=== PATIENT | female | born 1945 | race Caucasian/White ===

== ENCOUNTER 2018-11-24 11:13 | Emergency (ER) | payer MEDICARE ==
[~2018-11-24 11:13] MED LIST: Iopamidol 370 76% 100 ML VIAL ONE
[2018-11-24] MEDS ORDERED: Morphine 4 MG/ML VIAL ONE ×2 (11:31→13:54)
[2018-11-24] MEDS ORDERED: Ondansetron PF 4 MG/2 ML Vial ONE (11:31)
[2018-11-24 12:22] LABS: #Basophils 0.1 thou/uL (0.0-0.2); #Eosinphils 0.3 thou/uL (0.0-0.7); #Lymphocytes 2.4 thou/uL (1.20-3.40); #Monocytes 0.7 thou/uL (0.11-0.59); #Neutrophils 6.6 thou/uL (1.40-6.50); %Basophils 1.1 % (0.0-1.0); %Eosinophils 2.5 % (0.0-10.0); %Lymphocytes 23.6 % (21.0-51.0); %Monocytes 7.3 % (0.0-10.0); %Neutrophils 65.5 % (42.0-75.0); Mean Corpuscular Hemoglobin 30.4 pg (27.0-31.0); Mean Corpuscular Volume 86.8 fL (78.0-98.0); Mean Platelet Volume 6.1 fL (7.4-10.4); Platelet Count 336 thou/uL (130-400); RBC Distribution Width 11.3 % (11.5-14.5); Red Blood Cell (RBC) Count 4.93 mill/uL (4.20-5.40); White Blood Cell (WBC) Count 10.1 thou/uL (4.8-10.8)
[2018-11-24 12:35] LABS: ALT (SGPT) 35 U/L (8-55); AST (SGOT) 29 U/L (5-34); Albumin 4.7 g/dL (3.4-4.8); Alkaline Phosphatase 95 U/L (40-150); Anion Gap 18 mmol/L (10-20); BUN (Urea Nitrogen) 14 mg/dL (9.8-20.1); Bilirubin, Total 1.1 mg/dL (0.2-1.2); Calc. Creatinine Clearance 0 mL/min (70-130); Calcium 9.7 mg/dL (7.8-10.44); Carbon Dioxide 21 mmol/L (23-31); Chloride 105 mmol/L (98-107); Estimated GFR-MDRD 57; Globulin 2.9 g/dL (2.4-3.5); Glucose 103 mg/dL (83-110); Lipase 34 U/L (8-78); Potassium 4.1 mmol/L (3.5-5.1); Protein, Total 7.6 g/dL (6.0-8.3); Sodium 140 mmol/L (136-145)
--- NOTE | 2018-11-24 13:35 | CT ---
CT ABDOMEN AND PELVIS WITH IV CONTRAST: Date: 11/24/18 HISTORY: Acute abdominal pain. FINDINGS: The lung bases are clear. The liver demonstrates decreased echogenicity compared to the spleen, consi stent with fatty infiltration. The spleen, pancreas, adrenal glands, and right kidney are normal. No calcified gallstones are seen. There is a cyst in the left kidney. There is a cyst in the left kidney. There is relative heterogenei ty in the enhancement of the left renal parenchyma compared to the right. No hydroureteronephrosis is seen on either side. No free air, free fluid, or lymphadenopathy seen in the abdomen or pelvis. The small bowel loops are not abnormally dilated. There is sigmoid diverticulosis. There are vascular calcifications without ev idence of aneurysmal dilatation of the abdominal aorta. There are degenerative changes in the spine. IMPRESSION: 1. Fatty liver. 2. Probable left pyelonephritis. 3. Sigmoid diverticulosis. POS: [facility]ADA
[2018-11-24 13:36] LABS: Bilirubin Negative (Negative); Blood, Urine Negative (Negative); Clarity Clear (Clear); Glucose, Urine (Dipstick) Negative (Negative); Leukocyte Negative (Negative); Nitrite Negative (Negative); Protein, Urine (Dipstick) Negative (Neg-Trace); Specific Gravity, Urine 1.015 (1.005-1.030); Urobilinogen 0.2 mg/dL (0.2-1.0)
== END 2018-11-24 16:50 | disposition short-term general hospital (02) ==
LOC: MADERS 11:13
DX: R10.12 Left upper quadrant pain (principal); I10 Essential (primary) hypertension
CPT/HCPCS: 36415; 74177; 80053; 81003; 83690; 85025; 93005; 96374; 96375; 96376; J2270; J2405

== ENCOUNTER 2020-05-01 12:29 | Outpatient (CLI) | payer MEDICARE ==
--- NOTE | 2020-05-01 13:48 | RAD ---
LEFT KNEE: 05/01/20 Four views. HISTORY: Injury to knee. Joint spaces are preserved. No fracture. No significant degenerative change. No joint effusion. IMPRESSION: Unremarkable left knee. POS: AH
== END 2020-05-01 12:30 | disposition home or self-care (01) ==
LOC: MADRAD 12:29
PROVIDERS: ATTEND Nurse Practitioner Family
DX: S86.912A Strain of unspecified muscle(s) and tendon(s) at lower leg level, left leg, initial encounter (principal); S83.422A Sprain of lateral collateral ligament of left knee, initial encounter

== ENCOUNTER 2021-11-06 09:12 | Outpatient (CLI) | payer MEDICARE | END 2021-11-06 09:13 | disposition home or self-care (01) | LOC: MADRAD 09:12 | PROVIDERS: ATTEND Nurse Practitioner Family | DX: J12.0 Adenoviral pneumonia (principal); R06.2 Wheezing; R05.9 Cough, unspecified | CPT/HCPCS: 71046 ==